=== PATIENT | female | born 1990 | race African-American/Black ===

== ENCOUNTER 2023-07-17 12:02 | Emergency (ER) | payer SELFPAY ==
[2023-07-17 12:11] VITALS: BP 114/74; PULSE 97; RESP 19; TEMP 98.7; BMI 25.2
[2023-07-17] MEDS: SODIUM CHLORIDE 0.9% 500 ML INFUS.BAG IV ONE (13:11)
[2023-07-17 13:42] LABS: BASO % 0.3 % (0-2.0); EOS % 0.9 % (0-4.5); HEMATOCRIT 41.4 % (32.4-45.2); HEMOGLOBIN 13.8 GM/dL (10.7-15.3); LYMPH % 31.1 % (8-40); MCH 31.8 pg (25.7-33.7); MCHC 33.3 g/dl (32.0-36.0); MEAN CELL VOLUME 95.6 fl (80-96); MEAN PLT VOLUME 9.2 fl (7.5-11.1); NEUT % 54.7 % (42.8-82.8); PLATELET COUNT 230 10^3/uL (134-434); RBC 4.33 M/mm3 (3.60-5.2); WHITE BLOOD COUNT 3.6 K/mm3 (4.0-10.0)
[2023-07-17 13:58] LABS: POTASSIUM 4.2 mmol/L (3.5-5.1)
[2023-07-17 14:00] LABS: ALBUMIN 3.7 g/dl (3.4-5.0); BLOOD UREA NITROGEN 9.1 mg/dL (7-18); CALCIUM 9.2 mg/dL (8.5-10.1)
[2023-07-17 14:03] LABS: CREATININE 0.8 mg/dL (0.55-1.3)
[2023-07-17 14:05] LABS: BILIRUBIN,TOTAL 0.6 mg/dL (0.2-1); TOT PROT 7.9 g/dl (6.4-8.2)
== END 2023-07-17 14:25 | disposition home or self-care (01) ==
LOC: JER 12:02
DX: R19.7 Diarrhea, unspecified (principal); R63.0 Anorexia
CPT/HCPCS: 36415; 80053; 85025; 99284-25